=== PATIENT | male | born 1960 | race Caucasian/White ===

== ENCOUNTER → 2018-05-04 | Outpatient (CLI) | payer OTHER ==
[2018-05-04 10:32] LABS: CHOLESTEROL 203.25 mg/dL (0-200); TRIGLYCERIDES 355 mg/dL (<150)
[2018-05-04 10:43] LABS: DIRECT LDL 123 mg/dL (<100)
== END ==
LOC: OD 09:02
PROVIDERS: ATTEND Nurse Practitioner
DX: E78.5 Hyperlipidemia, unspecified (principal); I25.10 Atherosclerotic heart disease of native coronary artery without angina pectoris
CPT/HCPCS: 36415; 80061